=== PATIENT | female | born 1955 | race Caucasian/White ===

== ENCOUNTER 2018-08-06 13:46 | Outpatient (CLI) ==
--- NOTE | 2018-08-06 16:45 | MRI ---
EXAM: MRI right ankle without contrast. HISTORY: Right ankle pain. Knot marked. Difficulty walking.. TECHNIQUE: Using a local extremity coil on a high field strength magnet multiplanar multisequence MR I was performed of the right hind to midfoot without intravenous or intra-articular gadolinium contra st. Markers were placed along the skin surface lateral to the fifth metatarsal base.. FINDINGS: I do not have prior radiographs of the right ankle/foot available for comparison at the ti me of this dictation. The alignment of the right hind to midfoot shows no dislocation or joint subluxations. Intact [place] ligament fibers. Bone marrow signal intensity shows no acute fracture. Ankle mortise intact. Ta lar dome within normal limit in morphology. Trace tibiotalar/subtalar joint effusion. Question syno vitis. Moderate to markedly severe degenerative arthrosis/osteoarthrosis hind to midfoot. This is m ost marked over the tarsometatarsal articulations as well as navicular cuneiform articulations. Exte nsive circumferential soft tissue edema/swelling about the hind foot. This extends over the dorsum o f the midfoot. Some areas of muscle bulk fatty infiltration/atrophy. Low-lying soleus. Mild distal Achilles tendinosis with intact fibers. Plantar calcaneal spurring. Mild proximal plantar fasciitis. The anterior compartment tendons intact. A marker seen along the s kin surface lateral to the fifth metatarsal base. Along the more plantar overlying soft tissues to t he fifth metatarsal base is a amorphous collection measuring approximate 30 mm wide by 36 mm in lengt h by 10 mm deep. Intermediate T1 and heterogeneous bright STIR signal intensity. Question focus of scar/granulation tissue/fibrosis. This may reflect a focus of adventitious bursitis. Surrounding in flammatory change. Question involvement of the more distal lateral band slip insertion of the planta r fascia as well. Within the medial compartment posterior tibial tendinosis. Some flexor tenosynovitis. Prior sprain/ partial tearing deltoid ligament. Course of the tarsal tunnel within normal limit. Within the lateral compartment there is peroneus brevis tendinosis and split/longitudinal tearing. D istal insertional peroneus brevis tendon fibers present at the fifth metatarsal base. Peroneus longu s tendinosis with partial thickness tearing proximal to the cuboid. Peroneal tenosynovitis. No [place] walker tendon subluxation on the static examination. Intact anterior and posterior tibiofibular ligame nt fibers as well as transverse ligament/tibial slip.. Os trigonum. Degenerative acid changer the sy nchondrosis. Question degeneration posterior talofibular ligament with otherwise intact fibers ident ified.. Dystrophic/heterotopic ossification over the anterolateral gutter which may be related to ol d injury/avulsion involving the anterior talofibular ligament. Intact calcaneofibular ligament fiber s.. IMPRESSION: Moderate to markedly severe degenerative arthrosis/osteoarthrosis as described. Trace t ibiotalar/subtalar joint effusion. Synovitis. Extensive circumferential soft tissue edema/swelling about the hind foot extending over the dorsum of the midfoot. This may reflect cellulitis/phlegmon/dependent edema. Areas of muscle bulk fatty infi ltration/atrophy. Low-lying soleus. Mild distal Achilles tendinosis. Plantar calcaneal spurring. Mild proximal plant ar fasciitis. Flexor tenosynovitis. Prior sprain/partial tearing deltoid ligament. Peroneus brevis tendinosis and split/longitudinal tearing. Peroneus longus tendinosis with partial t hickness tearing proximal to the cuboid. Peroneal tenosynovitis. Os trigonum. Degenerative acid changer the synchondrosis. Question degeneration posterior talofibula r ligament. Dystrophic/heterotopic ossification over the anterolateral gutter which may be related o ld injury/avulsion involving the anterior talofibular ligament. Question focus of scar/granulation tissue/fibrosis along the plantar soft tissues to the fifth metata rsal base in the area clinically marked. This may reflect an area of adventitious bursitis. Milly tejada inflammatory change. Question involvement of the more distal lateral band slip insertion of the plantar fascia as well. Recommendation is obtainment and correlation with plain film radiographs of the right ankle/foot as n one are available for comparison at the time of this dictation.
== END 2018-08-06 13:47 | disposition home or self-care (01) ==
LOC: RAD 13:46
PROVIDERS: ATTEND Podiatrist
DX: R22.41 Localized swelling, mass and lump, right lower limb (principal); M79.671 Pain in right foot; M06.9 Rheumatoid arthritis, unspecified

== ENCOUNTER 2018-12-16 15:23 | Outpatient (CLI) | END 2018-12-16 15:24 | disposition home or self-care (01) | LOC: LAB 15:23 | PROVIDERS: ATTEND Internal Medicine Rheumatology | DX: Z79.899 Other long term (current) drug therapy (principal) | CPT/HCPCS: 36415; 80053; 85025 ==